=== PATIENT | male | born 1995 | race Native Hawaiian/Other Pacific Islander ===

== ENCOUNTER 2019-04-27 15:28 | Emergency (ER) | payer SELFPAY ==
[2019-04-27 16:26] VITALS: BP 120/80
--- NOTE | 2019-04-27 16:30 | UC ---
Back Pain HPI - HPI Summary HPI Summary: Patient is a 23yo male presenting with friend/supervisor whipped topping for R lower back pain x3 days that "began after he tried moving a cow that was stuck" on the [place] where he works. Concerned that he "strained his back." Describes pain as tight and sharp that radiates up into mid back and down the back on his leg. States pain is worse with sitting down and standing up. Notes somewhat relieved when standing. Denies numbness and tingling. Denies difficulty ambulating. Denies incontinence. States he has taken tylenol without relief. Denies prior back injury. - History of Current Complaint Chief Complaint: UCBackPain Stated Complaint: BACK PAIN Hx Obtained From: Patient, Ux Developer Timing: Constant Severity Currently: Severe Pain Intensity: 10 Pain Scale Used: 0-10 Numeric - Allergies/Home Medications Allergies/Adverse Reactions: Allergies Allergy/AdvReac Type Severity Reaction Status Date / Time No Known Allergies Allergy Verified 04/27/19 16:18 Home Medications: Home Medications Acetaminophen TAB* [Tylenol TAB*] 650 mg PO Q4H PRN 04/27/19 [History Confirmed 04/27/19] PMH/Surg Hx/FS Hx/Imm Hx Previously Healthy: Yes - Surgical History Surgical History: None - Family History Known Family History: Positive: Non-Contributory - Social History Occupation: Employed Full-time Alcohol Use: None Substance Use Type: None Smoking Status (MU): Never Smoked Tobacco Review of Systems All Other Systems Reviewed And Are Negative: No Constitutional: Positive: Negative Skin: Negative: Bruising Respiratory: Positive: Negative Cardiovascular: Positive: Negative Gastrointestinal: Positive: Negative Motor: Positive: Negative Neurovascular: Positive: Negative Musculoskeletal: Positive: Decreased ROM - "lower back movement", Myalgia - R lower back pain that radiates to R posterior thigh and R mid back. Negative: Edema Neurological: Negative: Paresthesia, Numbness Physical Exam Triage Information Reviewed: Yes Appearance: Well-Appearing, No Pain Distress, Well-Nourished Vital Signs: Initial Vital Signs Temp 97.7 F 04/27/19 16:19 Pulse 69 04/27/19 16:19 Resp 17 04/27/19 16:19 BP 120/80 04/27/19 16:19 Pulse Ox 100 04/27/19 16:19 Vital Signs Reviewed: Yes Eyes: Positive: Conjunctiva Clear ENT: Positive: Hearing grossly normal Neck: Positive: Supple Respiratory Exam: Normal Respiratory: Positive: Lungs clear, Normal breath sounds, No respiratory distress Cardiovascular Exam: Normal Cardiovascular: Positive: RRR Musculoskeletal: Positive: Strength Intact, No Edema, ROM Limited @ - lower back extension/flexion, Other: - mild tenderness to right side lumbar paraspinous muscles. observed normal gait without pain distress Neurological Exam: Other - sensation grossly intact Neurological: Positive: Alert Psychological: Positive: Age Appropriate Behavior Skin Exam: Normal - no erythema or ecchymosis noted Diagnostics - Radiology lumbar Radiology Interpretation Completed By: Radiologist Summary of Radiographic Findings: FINDINGS: The vertebra are in normal alignment. No fracture is seen. Disc spaces appear maintained. IMPRESSION: No evidence of fracture or subluxation. Back Pain Course/Dx - Course Course Of Treatment: Discussed normal radiograph findings. Instructed to continue with symptomatic treatment including RICE, heating, stretching, and use of flexeril at bedtime. Instructed to follow up with physician referral or ortho if symptoms persist. All questions were answered. Patient voiced understanding and agreed with treatment plan. - Differential Dx/Diagnosis Differential Diagnosis/HQI/PQRI: Herniated Disc, Strain, Sprain Provider Diagnosis: Low back strain, Spasm of muscle of lower back Discharge ED - Sign-Out/Discharge Documenting (check all that apply): Patient Departure All imaging exams completed and their final reports reviewed: No Studies - Discharge Plan Condition: Stable Disposition: HOME Prescriptions: Cyclobenzaprine TAB* [Flexeril 10 MG TAB*] 10 mg PO BEDTIME PRN #7 tab PRN Reason: Spasms - Muscle Patient Education Materials: Low Back Strain (ED), Muscle Spasm (ED), Lower Back Exercises (ED) Print Language: TURKMEN Referrals: Care [facility] [Outside] - If Needed [facility] [Outside] - If Needed [facility] [Outside] - If Needed Additional Instructions: As discussed, your xrays did not show any abnormalities. Take Flexeril as prescribed for relief of muscle spasms. This medication may make you drowsy so do not drive or operate heavy machinery after taking it. Rest, ice, stretch, apply heat to help alleviate pain symptoms. You may continue to take tylenol as directed for pain relief. Refrain from strenuous physical activity until pain has resolved. Follow up with one of the referrals listed below if pain persists. - Billing Disposition and Condition Condition: STABLE Disposition: Home
== END 2019-04-27 17:56 | disposition home or self-care (01) ==
LOC: UCCORT 15:28
DX: S39.012A Strain of muscle, fascia and tendon of lower back, initial encounter (principal); M62.830 Muscle spasm of back; W55.22XA Struck by cow, initial encounter; Y92.79 Other farm location as the place of occurrence of the external cause; Y99.0 Civilian activity done for income or pay
CPT/HCPCS: 72100; 99202; G0463